=== PATIENT | male | born 1935 | race Caucasian/White ===

== ENCOUNTER 2020-12-05 09:05 | Outpatient (CLI) | payer MEDICARE ==
--- NOTE | 2020-12-05 10:22 | RAD ---
PA AND LATERAL CHST: HISTORY: Dyspnea. COMPARISON: 10/29/2018 study. FINDINGS: Heart size is within normal limits. There are atherosclerotic changes of the aorta. Chronic-appeari ng lung changes are seen and felt to be fairly similar given differences in technique to the prior ex am. IMPRESSION: Chronic lung change, stable chest. POS: OFF
== END 2020-12-05 09:06 | disposition home or self-care (01) ==
LOC: BICRAD 09:05
PROVIDERS: ATTEND Internal Medicine Critical Care Medicine
DX: R06.00 Dyspnea, unspecified (principal)
CPT/HCPCS: 71046

== ENCOUNTER 2023-09-22 22:51 | Emergency (ER) | payer MEDICARE ==
[2023-09-22 23:45] LABS: #Basophils 0.1 thou/uL (0.0-0.2); #Eosinphils 0.1 thou/uL (0.0-0.7); #Monocytes 1.2 thou/uL (0.11-0.59); #Neutrophils 10.2 thou/uL (1.40-6.50); %Basophils 0.4 % (0.0-1.0); %Eosinophils 0.4 % (0.0-10.0); %Lymphocytes 6.2 % (21.0-51.0); %Monocytes 9.8 % (0.0-10.0); %Neutrophils 82.9 % (42.0-75.0); Hematocrit 38.9 % (42.0-52.0); Hemoglobin 11.8 g/dL (14.0-18.0); Mean Corpuscular HGB CONC 30.3 g/dL (32.0-36.0); Mean Corpuscular Volume 85.7 fl (78.0-98.0); Mean Platelet Volume 9.6 fL (7.4-10.4); Platelet Count 238 10x3/uL (130-400); RBC Distribution Width 21.4 % (11.5-14.5); Red Blood Cell (RBC) Count 4.54 mill/uL (4.70-6.10); White Blood Cell (WBC) Count 12.3 10x3/uL (4.8-10.8)
[2023-09-22 23:55] LABS: INR-International Normal Ratio 1.2; Prothrombin Time 15.3 sec (12.0-14.7)
[2023-09-22 23:56] LABS: PTT 29.3 sec (22.9-36.1)
[2023-09-23 00:05] LABS: AST (SGOT) 23 U/L (5-34); Bilirubin, Total 0.6 mg/dL (0.2-1.2); Chloride 106 mmol/L (98-107); Potassium 3.6 mmol/L (3.5-5.1); Sodium 139 mmol/L (136-145)
[2023-09-23 00:06] LABS: Troponin I Less than 0.010 ng/mL (< 0.028)
[2023-09-23 00:12] LABS: ALT (SGPT) 18 U/L (8-55); Alkaline Phosphatase 84 U/L (40-110); Anion Gap 17 mmol/L (10-20); BUN (Urea Nitrogen) 13 mg/dL (8.4-25.7); Calc. Creatinine Clearance 0 mL/min (70-130); Carbon Dioxide 20 mmol/L (23-31); Estimated GFR 71; Globulin 2.7 g/dL (2.4-3.5); Glucose 171 mg/dL (83-110); Magnesium 2.6 mg/dL (1.6-2.6); Protein, Total 6.7 g/dL (5.8-8.1)
[2023-09-23 02:17] LABS: Bacteria/HPF 1+ HPF (None Seen); Bilirubin Negative (Negative); Blood, Urine Negative (Negative); CAUTI Indications for Culture Dysuria,urgency,freq; Clarity Turbid (Clear); Glucose, Urine (Dipstick) Normal (Negative); Ketone, Urine Trace mg/dL (Negative); Leukocyte 500 Leu/uL (Negative); Nitrite Negative (Negative); Protein, Urine (Dipstick) 70 mg/dL (Neg-Trace); RBC/HPF 0-3 HPF (0-3); Specific Gravity, Urine 1.028 (1.002-1.036); Squamous Epithelial 0-3 HPF (0-3); Urobilinogen Normal mg/dL (Less than 2); WBC/HPF Greater than 50 HPF (0-3); pH, Urine 5.5 (5.0-9.0)
[2023-09-23 02:21] LABS: Urine Culture Reflex Yes Yes
[2023-09-23] MEDS ORDERED: Sodium Chloride 0.9% 100 ML ONE (03:20)
[2023-09-23] MEDS ORDERED: cefTRIAXone (ROCEPHIN) 2 GM VIAL ONE (03:21)
== END 2023-09-23 04:13 | disposition home or self-care (01) ==
LOC: ERS 22:51
DX: N39.0 Urinary tract infection, site not specified (principal); I25.2 Old myocardial infarction; E78.5 Hyperlipidemia, unspecified; I10 Essential (primary) hypertension; Z79.82 Long term (current) use of aspirin; Z79.899 Other long term (current) drug therapy
CPT/HCPCS: 36415; 71045; 80053; 81001; 83605; 83735; 83880; 84443; 84484; 85025; 85610; 85730; 87040; 87077; 87086; 87186; 87804; 93005; 96365; J0696; J3490

== ENCOUNTER 2024-08-13 15:02 | Inpatient (IN) | payer MEDICARE, OTHER ==
[2024-08-13 16:40] LABS: #Basophils 0.04 10x3/uL (0.0-0.2); %Basophils 0.6 % (0.0-1.0); %Lymphocytes 17.7 % (21.0-51.0); %Neutrophils 65.4 % (42.0-75.0); Hematocrit 39.2 % (42.0-52.0); Hemoglobin 12.4 g/dL (14.0-18.0); Mean Corpuscular HGB CONC 31.6 g/dL (32.0-36.0); Mean Corpuscular Hemoglobin 30.5 pg (27.0-31.0); Mean Corpuscular Volume 96.3 fL (78.0-98.0); Mean Platelet Volume 10.4 fL (7.4-10.4); Platelet Count 248 10x3/uL (130-400); RBC Distribution Width 14.4 % (11.5-14.5); Red Blood Cell (RBC) Count 4.07 mill/uL (4.70-6.10)
[2024-08-13 16:42] LABS: ALT (SGPT) 32 U/L (8-55); AST (SGOT) 41 U/L (5-34); Albumin 3.3 g/dL (3.4-4.8); Alkaline Phosphatase 184 U/L (40-110); Anion Gap 14 mmol/L (10-20); BUN (Urea Nitrogen) 13 mg/dL (8.4-25.7); Bilirubin, Total 0.8 mg/dL (0.2-1.2); Calc. Creatinine Clearance 0 mL/min (70-130); Calcium 8.2 mg/dL (7.8-10.44); Carbon Dioxide 23 mmol/L (23-31); Chloride 108 mmol/L (98-107); Estimated GFR 84; Glucose 93 mg/dL (83-110); Protein, Total 6.3 g/dL (5.8-8.1); Sodium 141 mmol/L (136-145)
[2024-08-13 16:43] LABS: INR-International Normal Ratio 0.9; Prothrombin Time 12.6 sec (12.0-14.7)
[2024-08-13] MEDS ORDERED: hydrALAZINE 20 MG/ML VIAL SLOW IVP PRN (20:22)
[2024-08-13] MEDS ORDERED: Labetalol HCl 100 MG/20 ML VIAL SLOW IVP PRN (20:22)
[2024-08-13] MEDS ORDERED: Glucagon 1 MG/ML KIT IM PRN (22:04)
[2024-08-13] MEDS ORDERED: Morphine 2 MG/ML VIAL SLOW IVP PRN (22:04)
[2024-08-13] MEDS ORDERED: Dextrose 50% Abboject 50 ML SYRINGE SLOW IVP PRN (22:04)
[2024-08-13] MEDS ORDERED: Dextrose 5% in Water 1,000 ML IV PRN (22:04)
[2024-08-13 23:01] VITALS: BMI 24.2
[2024-08-14] MEDS: Nitroglycerin 0.4 MG TAB (25 Tab Bottle) SL PRN (03:04)
[2024-08-14 04:37] LABS: #Basophils 0.03 10x3/uL (0.0-0.2); %Basophils 0.5 % (0.0-1.0); %Eosinophils 8.1 % (0.0-10.0); %Lymphocytes 21.8 % (21.0-51.0); %Monocytes 9.8 % (0.0-10.0); %Neutrophils 59.6 % (42.0-75.0); Hematocrit 36.4 % (42.0-52.0); Hemoglobin 11.4 g/dL (14.0-18.0); Mean Corpuscular HGB CONC 31.3 g/dL (32.0-36.0); Mean Corpuscular Hemoglobin 30.3 pg (27.0-31.0); Mean Corpuscular Volume 96.8 fL (78.0-98.0); Mean Platelet Volume 10.3 fL (7.4-10.4); Platelet Count 193 10x3/uL (130-400); RBC Distribution Width 14.6 % (11.5-14.5); Red Blood Cell (RBC) Count 3.76 mill/uL (4.70-6.10)
[2024-08-14 05:13] LABS: Chloride 109 mmol/L (98-107); Potassium 3.9 mmol/L (3.5-5.1); Sodium 140 mmol/L (136-145)
[2024-08-14 05:14] LABS: Calcium 8.2 mg/dL (7.8-10.44); Glucose 78 mg/dL (83-110)
[2024-08-14 05:16] LABS: Anion Gap 17 mmol/L (10-20); Carbon Dioxide 18 mmol/L (23-31)
[2024-08-14 05:18] LABS: BUN (Urea Nitrogen) 11 mg/dL (8.4-25.7); Calc. Creatinine Clearance 66 mL/min (70-130); Estimated GFR 85
[2024-08-14] MEDS: Nitroglycerin 50 MG/250 ML BOT 250 ML ONE (07:27)
[2024-08-14 08:21] LABS: Troponin I 0.038 ng/mL (< 0.028)
[2024-08-14] MEDS: Allopurinol 100 MG TAB PO SCH (10:07)
[2024-08-14] MEDS: Famotidine 20 MG TAB PO SCH (10:07)
[2024-08-14] MEDS: Isosorbide Mononitrate 30 MG ER.TAB PO SCH ×2 (10:08→14:53)
[2024-08-14] MEDS: Amiodarone 200 MG TAB PO SCH (10:08)
[2024-08-14] MEDS: Losartan 25 MG TAB PO SCH (10:09)
[2024-08-14 11:28] LABS: Bacteria/HPF None Seen HPF (None Seen); Bilirubin Negative (Negative); Blood, Urine Negative (Negative); CAUTI Indications for Culture Dysuria,urgency,freq; Glucose, Urine (Dipstick) Normal (Negative); Ketone, Urine Negative (Negative); Leukocyte Negative Leu/uL (Negative); Nitrite Negative (Negative); Protein, Urine (Dipstick) 10 mg/dL (Neg-Trace); RBC/HPF 0-3 HPF (0-3); Specific Gravity, Urine 1.012 (1.002-1.036); Squamous Epithelial 0-3 HPF (0-3); Urobilinogen 3 mg/dL (Less than 2); WBC/HPF 0-3 HPF (0-3)
[2024-08-14] MEDS: Nitroglycerin 50 MG/250 ML BOT 250 ML IVPB SCH (11:43)
[2024-08-14 11:49] LABS: Clarity Slightly Cloudy (Clear)
[2024-08-14 11:51] LABS: Urine Culture Reflex No No
[2024-08-14] MEDS: Acetaminophen 325 MG TAB PO PRN (15:07)
[2024-08-14] MEDS: Atorvastatin Calcium 40 MG TAB PO SCH (21:00)
[2024-08-15] MEDS: Aspirin Chewable 81 MG TAB PO SCH (08:08)
[2024-08-15] MEDS: Isosorbide Mononitrate 60 MG ER.TAB PO SCH (08:08)
[2024-08-15] MEDS: Clopidogrel Bisulfate 75 MG TAB PO SCH (08:09)
[2024-08-15] MEDS ORDERED: Amiodarone 200 MG TAB PO SCH (09:00)
[2024-08-15] MEDS: Ondansetron PF 4 MG/2 ML Vial IVP PRN (11:54)
[2024-08-15] MEDS: Nitroglycerin 2% Ointment 1 INCH/1 GM Packet TOP SCH (20:10)
[2024-08-15] MEDS ORDERED: Morphine 2 MG/ML VIAL SLOW IVP PRN (20:18)
[2024-08-16 11:13] LABS: CK1-BB 0 % (0); CK2-MB 0 % (0-3); CK3-MM 100 % (97-100); Creatine Kinase Total 41 U/L (30-208); Macro I 0 % (Not Observed); Macro II 0 % (Not Observed)
[2024-08-16] MEDS: Polyethylene Glycol 3350 17 GM Packet PO SCH (12:01)
[2024-08-16] MEDS: Senokot S 8.6-50 MG TAB PO SCH (12:01)
[2024-08-16] MEDS: Amiodarone 200 MG TAB PO SCH (12:01)
[2024-08-16] MEDS: Ranolazine ER 500 MG TAB PO SCH ×2 (12:22→20:38)
[2024-08-17 12:13] VITALS: TEMP 97.3
[2024-08-17 13:26] VITALS: BP 125/65
[2024-08-18 05:17] LABS: LD Isoenzyme 1 25 % (17-32); LD Isoenzyme 2 41 % (25-40); LD Isoenzyme 3 21 % (17-27); LD Isoenzyme 4 7 % (5-13); LD Isoenzyme 5 6 % (4-20)
== END 2024-08-17 16:13 | disposition home or self-care (01) | DRG 86 ==
LOC: ERS 15:02 → IMCU/EMU 20:03 → CCU 08-14 10:36 → 2SE 08-15 18:29
PROVIDERS: ADMIT Surgery; ATTEND Surgery
DX: S06.5X0A Traumatic subdural hemorrhage without loss of consciousness, initial encounter (principal); I25.110 Atherosclerotic heart disease of native coronary artery with unstable angina pectoris; I10 Essential (primary) hypertension; E78.5 Hyperlipidemia, unspecified; K21.9 Gastro-esophageal reflux disease without esophagitis; M10.9 Gout, unspecified; Z98.890 Other specified postprocedural states; Z79.899 Other long term (current) drug therapy; Z95.5 Presence of coronary angioplasty implant and graft; Z79.82 Long term (current) use of aspirin
CPT/HCPCS: 36415; 70450; 71045; 80048; 80053; 81001; 82550; 82552; 83615; 83625; 84484; 85025; 85610; 85730; 86850; 86900; 86901; 93005; 93010; 96365; J2405; J2597

== ENCOUNTER 2024-08-19 17:57 | Emergency (ER) | payer MEDICARE, OTHER ==
[2024-08-19 18:48] LABS: #Basophils 0.05 10x3/uL (0.0-0.2); %Basophils 0.7 % (0.0-1.0); %Eosinophils 5.4 % (0.0-10.0); %Lymphocytes 16.6 % (21.0-51.0); %Monocytes 10.9 % (0.0-10.0); %Neutrophils 66.1 % (42.0-75.0); Hemoglobin 12.9 g/dL (14.0-18.0); Mean Corpuscular HGB CONC 33.1 g/dL (32.0-36.0); Mean Corpuscular Hemoglobin 30.6 pg (27.0-31.0); Mean Corpuscular Volume 92.4 fL (78.0-98.0); Mean Platelet Volume 9.9 fL (7.4-10.4); Platelet Count 251 10x3/uL (130-400); RBC Distribution Width 14.6 % (11.5-14.5); Red Blood Cell (RBC) Count 4.22 mill/uL (4.70-6.10)
[2024-08-19 19:57] LABS: ALT (SGPT) 18 U/L (8-55); AST (SGOT) 26 U/L (5-34); Alkaline Phosphatase 154 U/L (40-110); Anion Gap 14 mmol/L (10-20); BUN (Urea Nitrogen) 16 mg/dL (8.4-25.7); Bilirubin, Total 0.8 mg/dL (0.2-1.2); Calc. Creatinine Clearance 0 mL/min (70-130); Calcium 8.1 mg/dL (7.8-10.44); Carbon Dioxide 22 mmol/L (23-31); Chloride 105 mmol/L (98-107); Estimated GFR 77; Globulin 2.6 g/dL (2.4-3.5); Glucose 112 mg/dL (83-110); Protein, Total 5.6 g/dL (5.8-8.1); Sodium 137 mmol/L (136-145)
== END 2024-08-20 02:00 | disposition home or self-care (01) ==
LOC: ERS 17:57
DX: R53.1 Weakness (principal); I25.2 Old myocardial infarction; I10 Essential (primary) hypertension; E78.5 Hyperlipidemia, unspecified; Z79.82 Long term (current) use of aspirin; Z79.899 Other long term (current) drug therapy
CPT/HCPCS: 36415; 70450; 71045; 80053; 83880; 84484; 85025; 93005

== ENCOUNTER 2024-08-24 19:04 | Observation (INO) | payer MEDICARE ==
[~2024-08-24 19:04] MED LIST: Iopamidol-370 76% 500 ML MDV (1 ML CHARGE) ONE
[2024-08-24 20:09] LABS: #Basophils 0.04 10x3/uL (0.0-0.2); %Basophils 0.5 % (0.0-1.0); %Eosinophils 3.6 % (0.0-10.0); %Lymphocytes 15.2 % (21.0-51.0); %Monocytes 9.8 % (0.0-10.0); %Neutrophils 70.6 % (42.0-75.0); Hematocrit 43.6 % (42.0-52.0); Hemoglobin 14.1 g/dL (14.0-18.0); Mean Corpuscular HGB CONC 32.3 g/dL (32.0-36.0); Mean Corpuscular Hemoglobin 30.5 pg (27.0-31.0); Mean Corpuscular Volume 94.2 fL (78.0-98.0); Mean Platelet Volume 9.5 fL (7.4-10.4); Platelet Count 266 10x3/uL (130-400); RBC Distribution Width 14.4 % (11.5-14.5); Red Blood Cell (RBC) Count 4.63 mill/uL (4.70-6.10)
[2024-08-24 20:24] LABS: ALT (SGPT) 20 U/L (8-55); AST (SGOT) 30 U/L (5-34); Albumin 3.4 g/dL (3.4-4.8); Alkaline Phosphatase 155 U/L (40-110); Anion Gap 14 mmol/L (10-20); BUN (Urea Nitrogen) 11 mg/dL (8.4-25.7); Bilirubin, Total 0.8 mg/dL (0.2-1.2); Calc. Creatinine Clearance 0 mL/min (70-130); Calcium 8.6 mg/dL (7.8-10.44); Carbon Dioxide 21 mmol/L (23-31); Chloride 106 mmol/L (98-107); Estimated GFR 84; Globulin 3.2 g/dL (2.4-3.5); Glucose 127 mg/dL (83-110); Lipase 24 U/L (8-78); Potassium 3.9 mmol/L (3.5-5.1); Protein, Total 6.6 g/dL (5.8-8.1); Sodium 137 mmol/L (136-145)
[2024-08-24 20:28] LABS: Troponin I 0.021 ng/mL (< 0.028)
[2024-08-24] MEDS ORDERED: Famotidine/PF 20 mg/2ml Vial ONE (23:25)
[2024-08-25] MEDS ORDERED: cefTRIAXone (ROCEPHIN) 1 GM VIAL ONE (01:02)
[2024-08-25] MEDS ORDERED: Ondansetron PF 4 MG/2 ML Vial ONE (01:02)
[2024-08-25] MEDS ORDERED: Sodium Chloride 0.9% 100 ML ONE (01:03)
[2024-08-25] MEDS ORDERED: Acetaminophen 650 MG Suppository PR PRN (02:54)
[2024-08-25] MEDS ORDERED: Acetaminophen 325 MG TAB PO PRN (02:54)
[2024-08-25] MEDS ORDERED: Morphine 2 MG/ML VIAL SLOW IVP PRN (03:39)
[2024-08-25 04:05] VITALS: BMI 22.4
[2024-08-25] MEDS: metroNIDAZOLE 500 MG in Premix 1 BAG IVPB SCH (04:40)
[2024-08-25] MEDS: Sodium Chloride 0.9% 1,000 ML IV SCH (04:40)
[2024-08-25 06:05] LABS: Anion Gap 12 mmol/L (10-20); BUN (Urea Nitrogen) 8 mg/dL (8.4-25.7); Calc. Creatinine Clearance 59 mL/min (70-130); Calcium 8.6 mg/dL (7.8-10.44); Carbon Dioxide 21 mmol/L (23-31); Chloride 106 mmol/L (98-107); Estimated GFR 84; Glucose 87 mg/dL (83-110); Potassium 3.4 mmol/L (3.5-5.1); Sodium 136 mmol/L (136-145)
[2024-08-25 06:07] LABS: #Basophils 0.04 10x3/uL (0.0-0.2); %Basophils 0.5 % (0.0-1.0); %Eosinophils 4.4 % (0.0-10.0); %Lymphocytes 15.8 % (21.0-51.0); %Monocytes 10.9 % (0.0-10.0); %Neutrophils 68.1 % (42.0-75.0); Mean Corpuscular HGB CONC 32.6 g/dL (32.0-36.0); Mean Corpuscular Hemoglobin 30.2 pg (27.0-31.0); Mean Corpuscular Volume 92.7 fL (78.0-98.0); Mean Platelet Volume 10.3 fL (7.4-10.4); Platelet Count 201 10x3/uL (130-400); RBC Distribution Width 14.4 % (11.5-14.5); Red Blood Cell (RBC) Count 4.96 mill/uL (4.70-6.10)
[2024-08-25] MEDS: Clopidogrel Bisulfate 75 MG TAB PO SCH (08:31)
[2024-08-25] MEDS: Aspirin Chewable 81 MG TAB PO SCH (08:31)
[2024-08-25] MEDS: Ranolazine ER 500 MG TAB PO SCH (08:31)
[2024-08-25] MEDS: Cholecalciferol 1,000 UNITS (25 MCG) TAB PO SCH (08:31)
[2024-08-25] MEDS: Amiodarone 200 MG TAB PO SCH (08:31)
[2024-08-25] MEDS: Losartan 25 MG TAB PO SCH (08:31)
[2024-08-25] MEDS: Famotidine 20 MG TAB PO SCH (08:31)
[2024-08-25] MEDS: Allopurinol 100 MG TAB PO SCH (08:31)
[2024-08-25] MEDS: Isosorbide Mononitrate 60 MG ER.TAB PO SCH (08:32)
[2024-08-25] MEDS: Enoxaparin 40 MG (0.4 mL) SYRINGE SC SCH (08:32)
[2024-08-25] MEDS ORDERED: Amiodarone 200 MG TAB PO SCH (09:00)
[2024-08-25] MEDS: cefTRIAXone\\ROCEPHIN 2 GM in Sodium Chloride 0.9% 100 ML IVPB SCH (12:28)
[2024-08-25 12:47] LABS: Bacteria/HPF None Seen HPF (None Seen); Bilirubin Negative (Negative); Blood, Urine Negative (Negative); CAUTI Indications for Culture Dysuria,urgency,freq; Clarity Clear (Clear); Glucose, Urine (Dipstick) Normal (Negative); Ketone, Urine Negative (Negative); Leukocyte Negative Leu/uL (Negative); Nitrite Negative (Negative); Protein, Urine (Dipstick) 20 mg/dL (Neg-Trace); RBC/HPF 0-3 HPF (0-3); Specific Gravity, Urine 1.044 (1.002-1.036); Squamous Epithelial 0-3 HPF (0-3); Urobilinogen Normal mg/dL (Less than 2); WBC/HPF 0-3 HPF (0-3)
[2024-08-25 12:50] LABS: Urine Culture Reflex No No
[2024-08-25] MEDS: Ondansetron PF 4 MG/2 ML Vial IVP PRN (17:04)
[2024-08-25] MEDS: Atorvastatin Calcium 40 MG TAB PO SCH (20:29)
[2024-08-25] MEDS: traZODone HCl 50 MG TAB PO SCH (20:30)
[2024-08-25] MEDS: Melatonin 3 MG TAB PO SCH (20:31)
[2024-08-26] MEDS ORDERED: fentaNYL 50 mcg/mL 1 mL Vial ONE (08:09)
[2024-08-26] MEDS ORDERED: PROPOFOL 40 ML ONE (08:09)
[2024-08-26] MEDS ORDERED: Lidocaine 2% PF 5 ML VIAL ONE (08:09)
[2024-08-26] MEDS ORDERED: Glycopyrrolate 0.2 MG/ML 5 ML SYRINGE ONE (08:45)
[2024-08-26] MEDS: Pantoprazole DR 40 MG TAB PO SCH (10:48)
[2024-08-26 15:31] VITALS: BP 147/78; TEMP 98.2
[2024-08-27] MEDS ORDERED: Pantoprazole DR 40 MG TAB PO SCH (09:00)
== END 2024-08-26 15:12 | disposition home or self-care (01) ==
LOC: ERS 19:04 → T4-B 08-25 02:37
PROVIDERS: ADMIT Student in an Organized Health Care Education/Training Program; ATTEND Hospitalist
PROC: 0DB78ZX Excision of Stomach, Pylorus, Via Natural or Artificial Opening Endoscopic, Diagnostic (ICD-10-PCS; principal; 2024-08-24)
DX: K31.89 Other diseases of stomach and duodenum (principal); K29.60 Other gastritis without bleeding; K21.9 Gastro-esophageal reflux disease without esophagitis; K57.92 Diverticulitis of intestine, part unspecified, without perforation or abscess without bleeding; I10 Essential (primary) hypertension; I25.10 Atherosclerotic heart disease of native coronary artery without angina pectoris; I25.2 Old myocardial infarction; E78.5 Hyperlipidemia, unspecified; N40.0 Benign prostatic hyperplasia without lower urinary tract symptoms; R63.4 Abnormal weight loss; R29.6 Repeated falls; Z95.5 Presence of coronary angioplasty implant and graft; Z86.73 Personal history of transient ischemic attack (TIA), and cerebral infarction without residual deficits; Z87.891 Personal history of nicotine dependence; Z98.41 Cataract extraction status, right eye; Z98.42 Cataract extraction status, left eye; Z68.22 Body mass index [BMI] 22.0-22.9, adult; Z79.2 Long term (current) use of antibiotics; Z79.82 Long term (current) use of aspirin; Z79.02 Long term (current) use of antithrombotics/antiplatelets; Z79.899 Other long term (current) drug therapy
CPT/HCPCS: 43239; 74177; 80048; 80053; 81001; 83690; 84484; 85025 ×2; 93005; J0696 ×3; J1650; J2405; J2704; J3010; J3490; J7030; 36415; 88305; 96361; 96372; 96374; 96375; 96376; G0378; Q9967

== ENCOUNTER 2024-08-28 12:41 | Emergency (ER) | payer MEDICARE | END 2024-08-28 19:54 | disposition home or self-care (01) | LOC: ERS 12:41 | DX: S00.93XA Contusion of unspecified part of head, initial encounter (principal); S51.012A Laceration without foreign body of left elbow, initial encounter; S70.02XA Contusion of left hip, initial encounter; I10 Essential (primary) hypertension; W18.30XA Fall on same level, unspecified, initial encounter; Z87.891 Personal history of nicotine dependence | CPT/HCPCS: 70450; 72125 ==

== ENCOUNTER 2024-09-28 13:22 | Outpatient (CLI) | payer MEDICARE | END 2024-09-28 13:23 | disposition home or self-care (01) | LOC: MRI 13:22 | PROVIDERS: ATTEND Physical Medicine & Rehabilitation | DX: M47.26 Other spondylosis with radiculopathy, lumbar region (principal); M47.815 Spondylosis without myelopathy or radiculopathy, thoracolumbar region; M47.817 Spondylosis without myelopathy or radiculopathy, lumbosacral region; Z98.890 Other specified postprocedural states | CPT/HCPCS: 72148 ==